=== PATIENT | female | born 1985 | race Caucasian/White ===

== ENCOUNTER 2021-11-18 05:52 | Emergency (ER) | payer BC ==
[2021-11-18 06:33] LABS: HEMOGLOBIN 13.3 gm/dl (12.3-15.3); RED BLOOD COUNT 5.12 M/UL (4.00-5.10); WHITE BLOOD COUNT 12.9 K/UL (4.5-11.0)
[2021-11-18 06:57] LABS: BUN/CREATININE RATIO 18 (0-10)
== END 2021-11-18 10:03 | disposition home or self-care (01) ==
LOC: ER1 05:52
PROVIDERS: Physician Assistant
DX: R07.89 Other chest pain (principal); I10 Essential (primary) hypertension; Z90.710 Acquired absence of both cervix and uterus
CPT/HCPCS: 71045; 80053; 82550; 82553; 83874; 84484; 85025; 85379; 93005; 96374; 99285; J1885